=== PATIENT | female | born 1955 | race Caucasian/White ===

== ENCOUNTER 2023-10-30 22:19 | Emergency (ER) | payer MEDICARE, MEDICAID ==
[~2023-10-30] VITALS: Ht 157.5 cm; Wt 55.0 kg
[2023-10-30 22:32] VITALS: TEMP 98.2; O2SAT 97
[2023-10-30 22:45] VITALS: BP 139/78; PULSE 88; RESP 16
[2023-10-30] MEDS: KETOROLAC 30MG/ML VIAL IM ONE (22:45)
[2023-10-30] MEDS ORDERED: NAP5EC MT (23:52)
== END 2023-10-31 01:18 | disposition home or self-care (01) ==
LOC: ER 22:19
DX: S92.912A Unspecified fracture of left toe(s), initial encounter for closed fracture (principal); W04.XXXA Fall while being carried or supported by other persons, initial encounter; Y93.9 Activity, unspecified; Y92.89 Other specified places as the place of occurrence of the external cause; Y99.8 Other external cause status
CPT/HCPCS: 99283; 73630; 96372; J1885